=== PATIENT | male | born 1970 | race Caucasian/White ===

== ENCOUNTER 2017-06-20 12:12 | Emergency (ER) | payer SELFPAY ==
[2017-06-20] MEDS: predniSONE 10 MG TABLET PO ×2 (14:08)
[2017-06-20] MEDS: ALBUTEROL SULFATE 2.5 MG/3 ML NEBU. NEB ×2 (14:25)
[2017-06-20 14:46] LABS: INFLUENZA A PATIENT NEGATIVE (NEGATIVE); INFLUENZA B PATIENT NEGATIVE (NEGATIVE); OBC FLU VALID
== END 2017-06-20 15:19 | disposition home or self-care (01) ==
LOC: ER 12:12
DX: J45.901 Unspecified asthma with (acute) exacerbation (principal); J40 Bronchitis, not specified as acute or chronic; G89.29 Other chronic pain
CPT/HCPCS: 71046; 87804; 87804-59; 94640; 99285-25; J7512; J7613

== ENCOUNTER 2017-12-25 08:28 | Emergency (ER) | payer SELFPAY ==
[~2017-12-25] VITALS: Ht 188 cm; Wt 81.6 kg
[~2017-12-25 08:28] MED LIST: AZIT250T PO; PRED50TA PO; PROAIR HFA8.5 GM INH
[2017-12-25 09:01] VITALS: BP 109/66
[2017-12-25] MEDS ORDERED: IPRATRPIUM/ALBUTEROL 0.5/2.5MG 3 ML NEBU. NEB ONE (09:15)
[2017-12-25] MEDS ORDERED: predniSONE 10 MG TABLET PO ONE (09:15)
[2017-12-25] MEDS ORDERED: PRED20TA PO (09:45)
[2017-12-25] MEDS ORDERED: PROAIR HFA8.5 GM INH (09:45)
--- NOTE | 2017-12-25 10:01 | PHYS DOC ---
Past Medical History Past Medical History: Asthma, Other Additional Past Medical Histor: djd, chronic back pain Past Surgical History: No Surgical History Alcohol Use: None Drug Use: None Adult General Chief Complaint Chief Complaint: ASTHMA HPI HPI Patient is a 47 year old male who presents with asthma. Patient has known history of asthma. He presents to the ER today complaining of some worsening of his asthma symptoms over the last 2-3 days. He has not had severe respiratory distress. He has no fever, chills, or other upper respiratory complaints. Patient does not currently have inhalers or her description for steroids at home. Review of Systems Review of Systems Constitutional: Denies fever or chills HENT: Denies nasal congestion Respiratory: Denies cough Cardiovascular: No additional information not addressed GI: Denies abdominal pain Integument: Denies rash Neurologic: Denies headache All other systems were reviewed and found to be within normal limits, except as documented in this note. Current Medications Current Medications Current Medications Medications (Trade) Dose Ordered Sig/Camille Start Time Stop Time Status Last Admin Dose Admin Albuterol/ Ipratropium (Duoneb) 3 ml 1X ONCE 12/25/17 09:15 12/25/17 09:16 DC 12/25/17 08:54 3 ML Prednisone (Prednisone) 50 mg 1X ONCE 12/25/17 09:15 12/25/17 09:16 DC 12/25/17 09:20 50 MG Allergies Allergies Allergies Coded Allergies Type Severity Reaction Last Updated Verified No Known Drug Allergies 06/20/17 No Physical Exam Physical Exam Constitutional: Well developed, well nourished, no acute distress, non-toxic appearance HENT: Normocephalic, atraumatic, bilateral external ears normal, oropharynx moist Eyes: PERRLA Neck: Normal range of motion Cardiovascular:Heart rate regular rhythm Lungs & Thorax: good air mvt in all gutierrez. few scattered wheezes. no increased WOB Skin: Warm, dry, no erythema, no rash Extremities: No edema Neurologic: Alert and oriented X 3 Psychologic: Affect normal Current Patient Data Vital Signs Vital Signs Date Time Temp Pulse Resp B/P (MAP) Pulse Ox O2 Delivery O2 Flow Rate FiO2 12/25/17 09:01 97.7 56 16 109/66 (80) 99 Room Air 97.7 EKG EKG [] Radiology/Procedures Radiology/Procedures [] Course & Med Decision Making Course & Med Decision Making Pertinent Labs and Imaging studies reviewed. (See chart for details) Patient is seen and examined in the ER for asthma exacerbation. No increased WOB. Lungs with few wheezes but clear after a single duoneb. Given prednisone in the ER and Rx for the same. Discharged to home and will return to the ER if his symptoms worsen. Dragon Disclaimer Dragon Disclaimer This electronic medical record was generated, in whole or in part, using a voice recognition dictation system. Departure Departure Impression: Primary Impression: Asthma Disposition: HOME, SELF-CARE Condition: GOOD Patient Instructions: Asthma Attacks, Prevention Scripts Albuterol Sulfate (PROAIR HFA INHALER) 8.5 Gm Hfa.aer.ad 1 PUFF INH PRN Q6HRS PRN for SHORTNESS OF BREATH, #1 INHALER 0 Refills Prov: TEETEE VERGARA DO 12/25/17 Prednisone (PREDNISONE) 20 Mg Tablet 20 MG PO DAILY for 5 Days, #5 TAB 2 Refills Prov: TEETEE VERGARA DO 12/25/17 TEETEE VERGARA DO Dec 25, 2017 10:01
== END 2017-12-25 09:54 | disposition home or self-care (01) ==
LOC: ER 08:28
DX: J45.909 Unspecified asthma, uncomplicated (principal); G89.29 Other chronic pain
CPT/HCPCS: 94640; 99283; J7512; J7620